=== PATIENT | female | born 1995 | race Native Hawaiian/Other Pacific Islander ===

== ENCOUNTER → 2020-12-16 | Outpatient (CLI) | payer SELFPAY ==
[2020-12-19 00:07] LABS: CHLAMYDIA TRACHOMATIS, NAA Negative (Negative)
== END ==
LOC: LAB SHORT 18:06
PROVIDERS: Family Medicine
DX: Z34.81 Encounter for supervision of other normal pregnancy, first trimester (principal)
CPT/HCPCS: 87491; 87591

== ENCOUNTER → 2021-01-19 | Outpatient (CLI) | payer SELFPAY | END | disposition home or self-care (01) | LOC: LAB SHORT 16:03 | DX: Z34.81 Encounter for supervision of other normal pregnancy, first trimester (principal); Z3A.11 11 weeks gestation of pregnancy | CPT/HCPCS: 87086 ==

== ENCOUNTER 2021-03-29 23:39 | Emergency (ER) | payer OTHER ==
[~2021-03-29] VITALS: Ht 167.6 cm; Wt 81.7 kg
== END 2021-03-30 01:17 | disposition home or self-care (01) ==
LOC: ER 23:39
DX: R04.0 Epistaxis (principal)
CPT/HCPCS: 30901; 99283-25; A9270

== ENCOUNTER → 2021-04-20 | Outpatient (CLI) | payer OTHER | END | disposition home or self-care (01) | LOC: LAB SHORT 17:45 | DX: Z34.82 Encounter for supervision of other normal pregnancy, second trimester (principal); Z3A.24 24 weeks gestation of pregnancy | CPT/HCPCS: 87086 ==

== ENCOUNTER → 2021-07-23 | Outpatient (CLI) | payer OTHER | END | disposition home or self-care (01) | LOC: LAB SHORT 15:52 | DX: Z34.03 Encounter for supervision of normal first pregnancy, third trimester (principal); Z3A.37 37 weeks gestation of pregnancy | CPT/HCPCS: 87081; 87150 ==

== ENCOUNTER 2021-07-29 06:57 | Inpatient (IN) | payer OTHER ==
[~2021-07-29] VITALS: Ht 167.6 cm; Wt 92.7 kg
[2021-07-29 14:28] LABS: BASOPHILS ABSOLUTE AUTO 0.02 K/mm3 (0.00-0.23); BASOPHILS PERCENT AUTO 0 % (0-2); EOSINOPHILS PERCENT AUTO 0 % (0-6); Hematocrit 33.1 % (33.0-51.0); Hemoglobin 10.8 g/dL (11.5-16.0); IMMATURE GRAN ABSOLUTE AUTO 0.07 K/mm3 (0.00-0.10); IMMATURE GRAN PERCENT AUTO 0 % (0-1); LYMPHOCYTES ABSOLUTE AUTO 1.21 K/mm3 (0.84-5.20); LYMPHOCYTES PERCENT AUTO 7 % (21-46); MONOCYTES PERCENT AUTO 5 % (4-13); Mean Corpuscular HGB 26.9 pg (26.0-34.0); Mean Corpuscular HGB Conc 32.6 g/dL (31.5-36.5); Mean Corpuscular Volume 83 fL (80-100); Mean Platelet Volume 10.5 fL (9.1-12.4); NEUTROPHILS ABSOLUTE AUTO 15.99 K/mm3 (1.96-9.15); NEUTROPHILS PERCENT AUTO 88 % (41-73); Platelet Count 337 K/mm3 (150-400); RDW Coefficient Variation 17.2 % (11.7-14.2); RDW Standard Deviation 51.1 fL (35.1-46.3); Red Blood Cell Count 4.01 M/mm3 (3.80-5.20); White Blood Cell Count 18.19 K/mm3 (4.00-11.30)
[2021-07-29] MEDS ORDERED: ACYC400 PO (14:51)
[2021-07-29] MEDS ORDERED: PRENATE ENHANC1 EACH PO (14:51)
--- NOTE | 2021-07-29 23:29 | NUR ---
07/29/21 0633 Lloyd Garrett PATIENT ARRIVED WITH INFANTE IN PLACE
[2021-07-29 23:50] LABS: PCO2 Cord - Arterial 48.6 mmHg (40-50); PO2 Cord - Arterial 14.3 mmHg (16-20); pH Cord - Arterial 7.29 (7.28-7.35)
[2021-07-29 23:51] LABS: PCO2 Cord - Venous 42.1 mmHg (40-50); pH Umbilical Cord - Venous 7.36 (7.26-7.35)
[2021-07-30 05:52] LABS: BASOPHILS ABSOLUTE AUTO 0.04 K/mm3 (0.00-0.23); BASOPHILS PERCENT AUTO 0 % (0-2); EOSINOPHILS PERCENT AUTO 0 % (0-6); Hematocrit 29.1 % (33.0-51.0); Hemoglobin 9.3 g/dL (11.5-16.0); IMMATURE GRAN ABSOLUTE AUTO 0.07 K/mm3 (0.00-0.10); IMMATURE GRAN PERCENT AUTO 0 % (0-1); LYMPHOCYTES ABSOLUTE AUTO 1.11 K/mm3 (0.84-5.20); LYMPHOCYTES PERCENT AUTO 6 % (21-46); MONOCYTES ABSOLUTE AUTO 1.33 K/mm3 (0.16-1.47); MONOCYTES PERCENT AUTO 8 % (4-13); Mean Corpuscular HGB 26.8 pg (26.0-34.0); Mean Corpuscular Volume 84 fL (80-100); Mean Platelet Volume 10.3 fL (9.1-12.4); NEUTROPHILS ABSOLUTE AUTO 14.92 K/mm3 (1.96-9.15); NEUTROPHILS PERCENT AUTO 85 % (41-73); Platelet Count 259 K/mm3 (150-400); RDW Coefficient Variation 17.3 % (11.7-14.2); Red Blood Cell Count 3.47 M/mm3 (3.80-5.20); White Blood Cell Count 17.47 K/mm3 (4.00-11.30)
--- NOTE | 2021-07-30 10:05 | NUR ---
checking on pt, reports that her pain is good, encouraged for her to call when her pain is starting to esclate, that my pain meds take 20 minutes to work, but would bring the tordal at noonish, but she just needs to ask for the percocet if she needs it.
--- NOTE | 2021-07-30 11:51 | NUR ---
removed ac 18g iv, cath intact, pt tolereated well
--- NOTE | 2021-07-30 15:08 | NUR ---
assume pt care. corwin care done. pt denies pain. pt desires to take a nap. requested assistance with nb to get nb into crib. discussed plan to get pt up oob and to shower after her nap sometime around dinner. pt verbalizes agreeance. pt tucked in to nap
[2021-07-31] MEDS ORDERED: DOCU100 PO (14:12)
[2021-07-31] MEDS ORDERED: IBUP800 PO (14:13)
[2021-07-31] MEDS ORDERED: Percocet 5-3251 EACH PO (14:13)
--- NOTE | 2021-07-31 16:23 | NUR ---
DISCHARGE INSTRUCTIONS, WRITTEN AND VERBAL, GIVEN TO PT AND , MICHELLE. ANSWERED ALL QUESTIONS AND CONCERNS. IV DISCONTINUED PER PT REQUEST. WRITTEN PRESCRIPTION GIVEN TO PT TODAY PER PROVIDER. MICHELLE DROPPED IT OFF AT PHARMACY TO GET FILLED.
--- NOTE | 2021-08-01 11:03 | NUR ---
FOLLOW UP APPOINTMENT SCHEDULED. PERSONAL BELONGINGS RETURNED. PT IS DISCHARGED HOME, DRIVEN BY MICHELLE.
--- NOTE | 2021-08-01 11:39 | NUR ---
PT DISCHARGED AT 1130.
--- NOTE | 2021-08-04 08:34 | NUR ---
PT CALLED [facility], CANCELLED HER PPFU AND IS GOING TO SEE DR. ABEL ON TUESDAY.
== END 2021-08-01 11:30 | disposition home or self-care (01) | DRG 788 ==
LOC: BC 06:57 → OBS 06:57 → BC 06:58 → OBS 14:03 → BC 14:04
PROVIDERS: ADMIT Family Medicine
PROC: 10D00Z1 Extraction of Products of Conception, Low, Open Approach (ICD-10-PCS; principal; 2021-07-29 22:45)
DX: O98.52 Other viral diseases complicating childbirth (principal); Z79.899 Other long term (current) drug therapy; Z37.0 Single live birth; Z3A.39 39 weeks gestation of pregnancy; O76 Abnormality in fetal heart rate and rhythm complicating labor and delivery; B00.9 Herpesviral infection, unspecified
CPT/HCPCS: 36415; 51702; 59025; 82803; 85025; 86850; 86900; 86901; 88307; A9270; J0456; J0690; J1885; J2001; J2210; J2270; J2550; J2590; J2765; J3010; J7050; J7120

== ENCOUNTER 2021-08-06 16:18 | Observation (INO) | payer OTHER ==
[~2021-08-06] VITALS: Ht 167.6 cm; Wt 85.1 kg
[~2021-08-06 16:18] MED LIST: ACYC400 PO; DOCU100 PO; IBUP800 PO; PRENATE ENHANC1 EACH PO; Percocet 5-3251 EACH PO
[2021-08-06 17:21] LABS: BASOPHILS ABSOLUTE AUTO 0.04 K/mm3 (0.00-0.23); BASOPHILS PERCENT AUTO 0 % (0-2); EOSINOPHILS ABSOLUTE AUTO 0.09 K/mm3 (0.00-0.68); EOSINOPHILS PERCENT AUTO 1 % (0-6); Hematocrit 30.7 % (33.0-51.0); Hemoglobin 9.7 g/dL (11.5-16.0); IMMATURE GRAN ABSOLUTE AUTO 0.03 K/mm3 (0.00-0.10); IMMATURE GRAN PERCENT AUTO 0 % (0-1); LYMPHOCYTES ABSOLUTE AUTO 1.82 K/mm3 (0.84-5.20); LYMPHOCYTES PERCENT AUTO 19 % (21-46); MONOCYTES ABSOLUTE AUTO 0.63 K/mm3 (0.16-1.47); MONOCYTES PERCENT AUTO 7 % (4-13); Mean Corpuscular HGB 26.6 pg (26.0-34.0); Mean Corpuscular HGB Conc 31.6 g/dL (31.5-36.5); Mean Corpuscular Volume 84 fL (80-100); Mean Platelet Volume 9.5 fL (9.1-12.4); NEUTROPHILS ABSOLUTE AUTO 6.85 K/mm3 (1.96-9.15); NEUTROPHILS PERCENT AUTO 72 % (41-73); Platelet Count 461 K/mm3 (150-400); RDW Standard Deviation 55.4 fL (35.1-46.3); Red Blood Cell Count 3.65 M/mm3 (3.80-5.20); White Blood Cell Count 9.46 K/mm3 (4.00-11.30)
[2021-08-06 17:47] LABS: Bun/Creatinine Ratio 18.4 (12.0-20.0); Calcium, Blood 8.9 mg/dL (8.5-10.1); Creatinine, Blood 0.76 mg/dL (0.40-1.00); Potassium, Blood 3.9 mmol/L (3.5-5.5)
[2021-08-06 19:59] LABS: Hematocrit 29.4 % (33.0-51.0); Hemoglobin 9.2 g/dL (11.5-16.0)
[2021-08-06 20:36] LABS: International Normalized Ratio 1.01; Prothrombin Time Results 10.6 Sec (9.7-11.5)
--- NOTE | 2021-08-06 21:30 | NUR ---
PT ARRIVES TO [facility] AT 2114 VIA GURSTONE FROM THE ED. REPORT WAS RECEIVED FROM KATHRYN PACHECO. PT HAS 1ST UNIT PRBC'S TRANSFUSION JUST FINISHING. PT STATES SHE FEELS MUCH BETTER THAN EARLIER, C/O PAIN IN HER LOW BACK. BLEEDING IS STABLE, PT IS TRANSFERED TO BED WITH STAFF STANDING BY, NO DIZZINESS, BUT PT IS SHAKY. ROSA CARE IS DONE, PAD CHANGED AND NEW GOWN. POC REVIEWED WITH PT AND SPOUSE. HER BABY IS ALSO AT THE BEDSIDE, SHE IS . REVIEWED CALL LIGHT AND CALL FOR ASSIST TO BATHROOM.
--- NOTE | 2021-08-06 21:45 | NUR ---
DR ABEL CALLED FOR ORDER CLARIFICATION. WILL WAIT TO DRAW CBC UNTIL AFTER 2ND UNIT PRBC'S.
--- NOTE | 2021-08-06 22:30 | NUR ---
DR ABEL CALLED FOR PAIN MEDICATION ORDERS. ALSO WILL TRANSFUSE 1 UNIT FOR HGB <=7.
--- NOTE | 2021-08-07 01:15 | NUR ---
PT STATES SHE IS FEELING BETTER AND PAIN IS TOLERABLE FOR HER TO SLEEP. CALL LIGHT AT BEDSIDE.
[2021-08-07 02:08] LABS: BASOPHILS ABSOLUTE AUTO 0.04 K/mm3 (0.00-0.23); BASOPHILS PERCENT AUTO 0 % (0-2); EOSINOPHILS ABSOLUTE AUTO 0.03 K/mm3 (0.00-0.68); EOSINOPHILS PERCENT AUTO 0 % (0-6); Hematocrit 29.4 % (33.0-51.0); Hemoglobin 9.7 g/dL (11.5-16.0); IMMATURE GRAN ABSOLUTE AUTO 0.04 K/mm3 (0.00-0.10); IMMATURE GRAN PERCENT AUTO 0 % (0-1); LYMPHOCYTES ABSOLUTE AUTO 2.35 K/mm3 (0.84-5.20); LYMPHOCYTES PERCENT AUTO 19 % (21-46); MONOCYTES PERCENT AUTO 6 % (4-13); Mean Corpuscular HGB 27.6 pg (26.0-34.0); Mean Corpuscular Volume 84 fL (80-100); Mean Platelet Volume 9.2 fL (9.1-12.4); NEUTROPHILS ABSOLUTE AUTO 9.24 K/mm3 (1.96-9.15); NEUTROPHILS PERCENT AUTO 74 % (41-73); Platelet Count 372 K/mm3 (150-400); RDW Coefficient Variation 16.6 % (11.7-14.2); RDW Standard Deviation 50.4 fL (35.1-46.3); Red Blood Cell Count 3.52 M/mm3 (3.80-5.20)
--- NOTE | 2021-08-07 06:20 | NUR ---
PT HAS SLEPT WELL BETWEEN FEEDING BABY AND SHORT INTERRUPTIONS FOR CARE. VSS. PAIN RATED 5/10, WHICH SHE STATES IS TOLERABLE AND PLANS TO GO BACK TO SLEEP. BLEEDING OVERNIGHT HAS BEEN SCANT. WILL CONTINUE TO MONITOR AND REPORT TO ONCOMING SHIFT.
[2021-08-07 08:38] LABS: BASOPHILS ABSOLUTE AUTO 0.02 K/mm3 (0.00-0.23); BASOPHILS PERCENT AUTO 0 % (0-2); EOSINOPHILS ABSOLUTE AUTO 0.06 K/mm3 (0.00-0.68); EOSINOPHILS PERCENT AUTO 1 % (0-6); Hematocrit 29.9 % (33.0-51.0); Hemoglobin 9.8 g/dL (11.5-16.0); IMMATURE GRAN ABSOLUTE AUTO 0.02 K/mm3 (0.00-0.10); IMMATURE GRAN PERCENT AUTO 0 % (0-1); LYMPHOCYTES ABSOLUTE AUTO 1.94 K/mm3 (0.84-5.20); LYMPHOCYTES PERCENT AUTO 22 % (21-46); MONOCYTES ABSOLUTE AUTO 0.64 K/mm3 (0.16-1.47); MONOCYTES PERCENT AUTO 7 % (4-13); Mean Corpuscular HGB 27.6 pg (26.0-34.0); Mean Corpuscular HGB Conc 32.8 g/dL (31.5-36.5); Mean Corpuscular Volume 84 fL (80-100); Mean Platelet Volume 9.6 fL (9.1-12.4); NEUTROPHILS ABSOLUTE AUTO 6.01 K/mm3 (1.96-9.15); NEUTROPHILS PERCENT AUTO 69 % (41-73); Platelet Count 382 K/mm3 (150-400); RDW Coefficient Variation 16.9 % (11.7-14.2); Red Blood Cell Count 3.55 M/mm3 (3.80-5.20); White Blood Cell Count 8.69 K/mm3 (4.00-11.30)
--- NOTE | 2021-08-07 11:16 | NUR ---
DICHARGE INSTRUCTIONS GIVE, PT SIGNED HAS NOT FURTHER QUESTIONS AT 1000, PT CALLED RN BACK INTO ROOM AT 1010, HAD A CLOT [id number] . RN CALLED AND SPOKE WITH DR ABEL AT 1015. ORDFERS TO KEEP PATIENT TILL 2 PM, HAVE PATIENT WALK AND MONITOR FOR IF IT HAPPENS AGAIN, AND CONTINUE CURRENT ORFERED MEDS. RN WILL CARRY THIS OUT
--- NOTE | 2021-08-07 16:08 | NUR ---
0900 steri strips removed
--- NOTE | 2021-08-07 17:21 | NUR ---
PT REGIVEN INSTUCTIONS. DENIES QUESTIONS, LEFT IN STABLE CONDIDTION. NO MORE CLOTS NOTED
--- NOTE | 2021-08-07 17:21 | NUR ---
PROVIDER UPDATE, ORDERS TO DICHARGE
== END 2021-08-07 17:30 | disposition home or self-care (01) ==
LOC: ER 16:18 → BC 16:19
PROVIDERS: Emergency Medicine; Physician Assistant; ADMIT Family Medicine
DX: O72.2 Delayed and secondary postpartum hemorrhage (principal)
CPT/HCPCS: 36415; 36430; 76856; 80048; 85014; 85018; 85025; 85384; 85610; 85730; 86850; 86900; 86901; 86923; 96372-59; 96374; 96375; 96376; 99285-25; A9270; J0690; J2210; J2405; J3010; J7030; J7050; P9016

== ENCOUNTER → 2021-09-10 | Outpatient (CLI) | payer OTHER ==
[2021-09-10 18:23] LABS: BASOPHILS ABSOLUTE AUTO 0.03 K/mm3 (0.00-0.23); BASOPHILS PERCENT AUTO 1 % (0-2); EOSINOPHILS ABSOLUTE AUTO 0.07 K/mm3 (0.00-0.68); EOSINOPHILS PERCENT AUTO 2 % (0-6); Hematocrit 40.7 % (33.0-51.0); Hemoglobin 12.5 g/dL (11.5-16.0); IMMATURE GRAN ABSOLUTE AUTO 0.01 K/mm3 (0.00-0.10); IMMATURE GRAN PERCENT AUTO 0 % (0-1); LYMPHOCYTES ABSOLUTE AUTO 1.34 K/mm3 (0.84-5.20); LYMPHOCYTES PERCENT AUTO 28 % (21-46); MONOCYTES ABSOLUTE AUTO 0.33 K/mm3 (0.16-1.47); MONOCYTES PERCENT AUTO 7 % (4-13); Mean Corpuscular HGB Conc 30.7 g/dL (31.5-36.5); Mean Corpuscular Volume 91 fL (80-100); Mean Platelet Volume 10.8 fL (9.1-12.4); NEUTROPHILS ABSOLUTE AUTO 3.02 K/mm3 (1.96-9.15); NEUTROPHILS PERCENT AUTO 63 % (41-73); Platelet Count 381 K/mm3 (150-400); RDW Coefficient Variation 18.4 % (11.7-14.2); RDW Standard Deviation 61.7 fL (35.1-46.3); Red Blood Cell Count 4.47 M/mm3 (3.80-5.20)
== END | disposition home or self-care (01) ==
LOC: LAB SHORT 11:55
PROVIDERS: Family Medicine
DX: O72.2 Delayed and secondary postpartum hemorrhage (principal)
CPT/HCPCS: 85025

== ENCOUNTER → 2022-03-11 | Outpatient (CLI) | payer OTHER ==
[2022-03-11 16:43] LABS: BASOPHILS ABSOLUTE AUTO 0.03 K/mm3 (0.00-0.23); BASOPHILS PERCENT AUTO 0 % (0-2); EOSINOPHILS ABSOLUTE AUTO 0.02 K/mm3 (0.00-0.68); EOSINOPHILS PERCENT AUTO 0 % (0-6); Hematocrit 37.7 % (33.0-51.0); Hemoglobin 13.2 g/dL (11.5-16.0); IMMATURE GRAN ABSOLUTE AUTO 0.01 K/mm3 (0.00-0.10); IMMATURE GRAN PERCENT AUTO 0 % (0-1); LYMPHOCYTES ABSOLUTE AUTO 1.69 K/mm3 (0.84-5.20); LYMPHOCYTES PERCENT AUTO 24 % (21-46); MONOCYTES ABSOLUTE AUTO 0.44 K/mm3 (0.16-1.47); MONOCYTES PERCENT AUTO 6 % (4-13); Mean Corpuscular HGB 32.4 pg (26.0-34.0); Mean Corpuscular Volume 93 fL (80-100); Mean Platelet Volume 10.2 fL (9.1-12.4); NEUTROPHILS ABSOLUTE AUTO 4.95 K/mm3 (1.96-9.15); NEUTROPHILS PERCENT AUTO 69 % (41-73); Platelet Count 286 K/mm3 (150-400); RDW Coefficient Variation 12.8 % (11.7-14.2); RDW Standard Deviation 43.8 fL (35.1-46.3); Red Blood Cell Count 4.07 M/mm3 (3.80-5.20); White Blood Cell Count 7.14 K/mm3 (4.00-11.30)
[2022-03-12 09:11] LABS: HBSAG SCREEN Negative (Negative)
== END | disposition home or self-care (01) ==
LOC: LAB SHORT 15:40
PROVIDERS: Family Medicine
DX: Z34.81 Encounter for supervision of other normal pregnancy, first trimester (principal); Z3A.09 9 weeks gestation of pregnancy
CPT/HCPCS: 36415; 80055; 84443; 86803

== ENCOUNTER → 2022-09-29 | Outpatient (CLI) | payer OTHER | LOC: LAB 11:58 → LAB SHORT 11:58 | DX: Z34.03 Encounter for supervision of normal first pregnancy, third trimester (principal); Z3A.36 36 weeks gestation of pregnancy | CPT/HCPCS: 87081; 87150 ==

== ENCOUNTER 2022-10-19 05:01 | Inpatient (IN) | payer OTHER ==
[~2022-10-19] VITALS: Ht 167.6 cm; Wt 87.3 kg
[2022-10-19] VITALS (21 sets, daily range): BP systolic 63–104; BP diastolic 39–74
[2022-10-19] MEDS ORDERED: VALA500 PO (05:37)
[2022-10-19] MEDS ORDERED: IRON18 MG PO (05:37)
[2022-10-19 05:39] LABS: BASOPHILS ABSOLUTE AUTO 0.03 K/mm3 (0.00-0.23); BASOPHILS PERCENT AUTO 0 % (0-2); EOSINOPHILS ABSOLUTE AUTO 0.04 K/mm3 (0.00-0.68); EOSINOPHILS PERCENT AUTO 0 % (0-6); Hematocrit 38.2 % (33.0-51.0); IMMATURE GRAN ABSOLUTE AUTO 0.04 K/mm3 (0.00-0.10); IMMATURE GRAN PERCENT AUTO 0 % (0-1); LYMPHOCYTES ABSOLUTE AUTO 1.68 K/mm3 (0.84-5.20); LYMPHOCYTES PERCENT AUTO 19 % (21-46); MONOCYTES ABSOLUTE AUTO 0.66 K/mm3 (0.16-1.47); MONOCYTES PERCENT AUTO 7 % (4-13); Mean Corpuscular HGB 31.3 pg (26.0-34.0); Mean Corpuscular Volume 92 fL (80-100); Mean Platelet Volume 10.1 fL (9.1-12.4); NEUTROPHILS ABSOLUTE AUTO 6.47 K/mm3 (1.96-9.15); NEUTROPHILS PERCENT AUTO 73 % (41-73); Platelet Count 278 K/mm3 (150-400); RDW Coefficient Variation 14.6 % (11.7-14.2); RDW Standard Deviation 48.7 fL (35.1-46.3); Red Blood Cell Count 4.15 M/mm3 (3.80-5.20); White Blood Cell Count 8.92 K/mm3 (4.00-11.30)
--- NOTE | 2022-10-19 09:46 | NUR ---
PT TEARFUL AND PAINFUL WHEN ARRIVES TO PACU. FENTANYL IV GIVEN. PT DECLINES HOLDING NB AT THIS TIME
--- NOTE | 2022-10-19 09:51 | NUR ---
10/19/22 0951 MarcelaChata pantoja BABY BOY BORN AT 0839. INFANTE PLACED AFTER SPINAL COMPLETED BY DR. MARIANO. CORD BLOOD SENT WITH ADAM BABY NURSE.
--- NOTE | 2022-10-19 10:23 | NUR ---
PT PAIN DOWN TO 7. SHERI AT THIS TIME. PT SHERI SIPS OF WATER AND CRACKERS. PLAN TO START ORAL PAIN RX WHEN OUT TO ROOM. LAB IN PACU DRAWING NOW. PT TALKATIVE AND LOOKING AT NB BUT DECLINES HOLDING AT THIS TIME.
[2022-10-19 10:45] LABS: BASOPHILS ABSOLUTE AUTO 0.03 K/mm3 (0.00-0.23); BASOPHILS PERCENT AUTO 0 % (0-2); EOSINOPHILS ABSOLUTE AUTO 0.02 K/mm3 (0.00-0.68); EOSINOPHILS PERCENT AUTO 0 % (0-6); Hematocrit 36.3 % (33.0-51.0); Hemoglobin 12.3 g/dL (11.5-16.0); IMMATURE GRAN ABSOLUTE AUTO 0.06 K/mm3 (0.00-0.10); IMMATURE GRAN PERCENT AUTO 1 % (0-1); LYMPHOCYTES PERCENT AUTO 13 % (21-46); MONOCYTES ABSOLUTE AUTO 0.53 K/mm3 (0.16-1.47); MONOCYTES PERCENT AUTO 5 % (4-13); Mean Corpuscular HGB 31.6 pg (26.0-34.0); Mean Corpuscular HGB Conc 33.9 g/dL (31.5-36.5); Mean Corpuscular Volume 93 fL (80-100); Mean Platelet Volume 10.2 fL (9.1-12.4); NEUTROPHILS ABSOLUTE AUTO 8.24 K/mm3 (1.96-9.15); NEUTROPHILS PERCENT AUTO 81 % (41-73); Platelet Count 285 K/mm3 (150-400); RDW Coefficient Variation 14.8 % (11.7-14.2); RDW Standard Deviation 50.2 fL (35.1-46.3); Red Blood Cell Count 3.89 M/mm3 (3.80-5.20); White Blood Cell Count 10.18 K/mm3 (4.00-11.30)
--- NOTE | 2022-10-19 11:45 | NUR ---
PT REPORTING PAIN MORE CONTROLLED AT THIS TIME BUT STILL RATING PAIN 6-7. SHE DECLINES IV PAIN MEDICATION FOR BREAKTHROUGH AT THIS TIME. PT ATTEMPTING TO FEED NB AND TOLERATING WELL. SHE REPORTS INCREASE IN CRAMPING.
[2022-10-19 11:54] LABS: Performing Lab BLOODWORKS; Test Name ABID
--- NOTE | 2022-10-19 13:04 | NUR ---
SPOKE WITH DR ABEL REGARDING PT LABS. ORDERS FOR REPEAT CBC AT [address] ABEL NO DIC ORDERS AT THIS TIME. PT FUNDUS REMAINS FIRM, BLEEDING STABLE, VSS.
--- NOTE | 2022-10-19 16:30 | NUR ---
PT REQUESTING FUNDAL RUB DUE TO INCREASED BLEEDING. PT EXTREMELY PAINFUL WITH RUB, FUNDUS FEELS FIRM. BLEEDING IS SCANT.
[2022-10-19 17:07] LABS: BASOPHILS ABSOLUTE AUTO 0.03 K/mm3 (0.00-0.23); BASOPHILS PERCENT AUTO 0 % (0-2); EOSINOPHILS ABSOLUTE AUTO 0.01 K/mm3 (0.00-0.68); EOSINOPHILS PERCENT AUTO 0 % (0-6); Hematocrit 35.2 % (33.0-51.0); Hemoglobin 11.8 g/dL (11.5-16.0); IMMATURE GRAN ABSOLUTE AUTO 0.06 K/mm3 (0.00-0.10); IMMATURE GRAN PERCENT AUTO 0 % (0-1); LYMPHOCYTES ABSOLUTE AUTO 1.32 K/mm3 (0.84-5.20); LYMPHOCYTES PERCENT AUTO 10 % (21-46); MONOCYTES ABSOLUTE AUTO 0.85 K/mm3 (0.16-1.47); MONOCYTES PERCENT AUTO 6 % (4-13); Mean Corpuscular HGB 31.1 pg (26.0-34.0); Mean Corpuscular HGB Conc 33.5 g/dL (31.5-36.5); Mean Corpuscular Volume 93 fL (80-100); NEUTROPHILS ABSOLUTE AUTO 11.18 K/mm3 (1.96-9.15); NEUTROPHILS PERCENT AUTO 83 % (41-73); Platelet Count 248 K/mm3 (150-400); RDW Coefficient Variation 14.7 % (11.7-14.2); RDW Standard Deviation 49.9 fL (35.1-46.3); Red Blood Cell Count 3.79 M/mm3 (3.80-5.20); White Blood Cell Count 13.45 K/mm3 (4.00-11.30)
[2022-10-20] VITALS (8 sets, daily range): BP systolic 87–97; BP diastolic 51–61
[2022-10-20 06:14] LABS: BASOPHILS ABSOLUTE AUTO 0.03 K/mm3 (0.00-0.23); BASOPHILS PERCENT AUTO 0 % (0-2); EOSINOPHILS ABSOLUTE AUTO 0.06 K/mm3 (0.00-0.68); EOSINOPHILS PERCENT AUTO 1 % (0-6); Hemoglobin 11.3 g/dL (11.5-16.0); IMMATURE GRAN ABSOLUTE AUTO 0.06 K/mm3 (0.00-0.10); IMMATURE GRAN PERCENT AUTO 1 % (0-1); LYMPHOCYTES ABSOLUTE AUTO 1.28 K/mm3 (0.84-5.20); LYMPHOCYTES PERCENT AUTO 11 % (21-46); MONOCYTES ABSOLUTE AUTO 0.97 K/mm3 (0.16-1.47); MONOCYTES PERCENT AUTO 9 % (4-13); Mean Corpuscular HGB 31.4 pg (26.0-34.0); Mean Corpuscular HGB Conc 33.2 g/dL (31.5-36.5); Mean Corpuscular Volume 94 fL (80-100); Mean Platelet Volume 9.7 fL (9.1-12.4); NEUTROPHILS ABSOLUTE AUTO 8.79 K/mm3 (1.96-9.15); NEUTROPHILS PERCENT AUTO 79 % (41-73); Platelet Count 226 K/mm3 (150-400); RDW Coefficient Variation 14.7 % (11.7-14.2); RDW Standard Deviation 50.7 fL (35.1-46.3); White Blood Cell Count 11.19 K/mm3 (4.00-11.30)
[2022-10-21 03:57] VITALS: BP 91/56
[2022-10-21 08:39] VITALS: BP 98/56
[2022-10-21] MEDS ORDERED: Percocet 5-3251 EACH (09:16)
--- NOTE | 2022-10-21 11:40 | NUR ---
up showered voided linen changed
[2022-10-21 11:49] VITALS: BP 91/57
== END 2022-10-21 12:20 | disposition home or self-care (01) | DRG 787 ==
LOC: BC 05:01 → OBS 05:01 → BC 05:09
PROVIDERS: ADMIT Family Medicine
PROC: 10D00Z1 Extraction of Products of Conception, Low, Open Approach (ICD-10-PCS; principal; 2022-10-19 07:30)
DX: O34.211 Maternal care for low transverse scar from previous cesarean delivery (principal); O98.32 Other infections with a predominantly sexual mode of transmission complicating childbirth; Z3A.39 39 weeks gestation of pregnancy; Z37.0 Single live birth; A60.00 Herpesviral infection of urogenital system, unspecified; Z79.899 Other long term (current) drug therapy
CPT/HCPCS: 36415; 85025; 86850; 86870; 86900; 86901; A9270; J0690; J1100; J1170; J1885; J2270; J2371; J2405; J2590; J2704; J3010; J3360; J7120

== ENCOUNTER → 2022-12-01 | Outpatient (CLI) | payer OTHER ==
[~2022-12-01] MED LIST changes: +IRON18 MG PO; +Percocet 5-3251 EACH; +VALA500 PO
[2022-12-06 14:10] LABS: HPV 16 Negative (Negative); HPV 18 Negative (Negative); HPV OTHER HR TYPES Negative (Negative)
== END ==
LOC: LAB SHORT 12:00 → LAB 12:00
PROVIDERS: Family Medicine
DX: Z12.4 Encounter for screening for malignant neoplasm of cervix (principal)
CPT/HCPCS: 87624; G0145

== ENCOUNTER → 2024-05-15 | Outpatient (CLI) | payer OTHER ==
[2024-05-19 03:03] LABS: HPV HIGH RISK BY TMA Not Detected; HPV SOURCE Cervical
== END | disposition home or self-care (01) ==
LOC: LAB 11:37 → LAB SHORT 11:37
PROVIDERS: Family Medicine
DX: Z12.4 Encounter for screening for malignant neoplasm of cervix (principal)
CPT/HCPCS: 87624; G0123

== ENCOUNTER 2024-09-05 09:19 | Emergency (ER) | payer OTHER ==
[~2024-09-05] VITALS: Ht 167.6 cm; Wt 77.1 kg
[2024-09-05 09:33] VITALS: BP 100/74
[2024-09-05] MEDS ORDERED: NS 1,000 ML IV SCH (09:35)
[2024-09-05] MEDS ORDERED: Ondansetron HCl 2 MG / ML 2ML Vial IV ONE (09:35)
[2024-09-05 10:00] LABS: BASOPHILS ABSOLUTE AUTO 0.01 K/mm3 (0.00-0.23); BASOPHILS PERCENT AUTO 0 % (0-2); EOSINOPHILS ABSOLUTE AUTO 0.00 K/mm3 (0.00-0.68); EOSINOPHILS PERCENT AUTO 0 % (0-6); Hematocrit 38.5 % (33.0-51.0); Hemoglobin 13.3 g/dL (11.5-16.0); IMMATURE GRAN ABSOLUTE AUTO 0.01 K/mm3 (0.00-0.10); IMMATURE GRAN PERCENT AUTO 0 % (0-1); LYMPHOCYTES ABSOLUTE AUTO 0.53 K/mm3 (0.84-5.20); LYMPHOCYTES PERCENT AUTO 6 % (21-46); MONOCYTES ABSOLUTE AUTO 0.25 K/mm3 (0.16-1.47); MONOCYTES PERCENT AUTO 3 % (4-13); Mean Corpuscular HGB Conc 34.5 g/dL (31.5-36.5); Mean Corpuscular Volume 89 fL (80-100); NEUTROPHILS ABSOLUTE AUTO 8.27 K/mm3 (1.96-9.15); NEUTROPHILS PERCENT AUTO 91 % (41-73); NRBC ABSOLUTE 0.00 K/mm3 (0.00-0.02); NRBC Auto 0.0 /100 WBC (0.0-0.2); Platelet Count 309 K/mm3 (150-400); RDW Coefficient Variation 13.0 % (11.7-14.2); RDW Standard Deviation 42.5 fL (35.1-46.3)
[2024-09-05 10:13] LABS: Alanine Aminotransfer (ALT/SGP 21.0 U/L (12-78); Albumin, Blood 3.6 g/dL (3.4-5.0); Albumin/Globulin Ratio 1.0 (0.8-1.8); Anion Gap 7.0 mmol/L (3-11); Aspartate Aminotrans (AST/SGOT 14.0 U/L (12-37); Bilirubin, Total 0.8 mg/dL (0.1-1.0); Blood Urea Nitrogen 10.0 mg/dL (8-24); CO2, Blood 25.0 mmol/L (21-32); Calcium, Blood 8.6 mg/dL (8.5-10.1); Chloride, Blood 106.0 mmol/L (98-108); Creatinine, Blood 0.62 mg/dL (0.40-1.00); Globulin, Blood 3.6 g/dL (2.2-4.0); Glucose, Blood 100.0 mg/dL (70-99); Potassium, Blood 3.6 mmol/L (3.5-5.5); Sodium, Blood 134.0 mmol/L (136-145); Total Protein, Blood 7.2 g/dL (6.4-8.2)
== END 2024-09-05 10:58 | disposition home or self-care (01) ==
LOC: ER 09:19
PROVIDERS: Emergency Medicine
DX: O21.1 Hyperemesis gravidarum with metabolic disturbance (principal); Z3A.01 Less than 8 weeks gestation of pregnancy; Z79.899 Other long term (current) drug therapy
CPT/HCPCS: 80053; 83690; 85025; 96374; 99283-25; J2405; J7030

== ENCOUNTER → 2025-01-29 | Outpatient (CLI) | payer OTHER | LOC: LAB SHORT 18:02 → LAB 18:02 | DX: O99.891 Other specified diseases and conditions complicating pregnancy (principal); R30.0 Dysuria | CPT/HCPCS: 87086 ==